=== PATIENT | male | born 1970 | race Caucasian/White ===

== ENCOUNTER 2018-12-03 20:08 | Emergency (ER) | payer MEDICAID ==
[~2018-12-03] VITALS: Ht 180.3 cm; Wt 154.6 kg
[~2018-12-03 20:08] MED LIST: CLIN150C8 PO; IBUP-1986 PO
[2018-12-03] MEDS ORDERED: ampicillin/sulbac 3gm/NS 100ml 100 ML IV STA (21:13)
[2018-12-03] MEDS ORDERED: dexamethasone sod phosphate 10mg/ml inj IV STA (21:13)
[2018-12-03] MEDS ORDERED: LIDOcaine 1% w/epiNEPHrine 1:200,000 30ml vial IM ONE (21:20)
--- NOTE | 2018-12-03 21:33 | NUR ---
DR SURESH VERBALIZED THAT HE DOES NOT WANT BLOOD CULTURES DRAWN PRIOR TO IV ANTI-BIOTICS
[2018-12-03] MEDS ORDERED: HYDR-3965 PO (21:51)
[2018-12-03] MEDS ORDERED: AMOX-580 PO (21:51)
[2018-12-03 21:58] VITALS: BP 122/53
== END 2018-12-03 23:26 | disposition home or self-care (01) ==
LOC: ER 20:09
DX: J36 Peritonsillar abscess (principal); Z79.899 Other long term (current) drug therapy
CPT/HCPCS: 42700; 99283; J1100; J3490

== ENCOUNTER 2019-07-10 02:45 | Emergency (ER) | payer MEDICAID ==
[~2019-07-10] VITALS: Ht 182.9 cm; Wt 145.4 kg
[2019-07-10] MEDS ORDERED: dexamethasone sod phosphate 10mg/ml inj IV STA (03:03)
[2019-07-10] MEDS ORDERED: ketorolac trometh inj. 60 MG/2 ML VIAL IM ONE (03:05)
[2019-07-10] MEDS ORDERED: probenecid 500mg tablet PO ONE (03:10)
[2019-07-10] MEDS ORDERED: ampicillin/sulbac 3gm/NS 100ml 100 ML IV ONE (03:30)
[2019-07-10] MEDS ORDERED: LIDOcaine 1% W/epiNEPHrine 1:100,000 20ml vial IJ ONE (03:45)
[2019-07-10] MEDS ORDERED: fentaNYL/PF 50MCG/1 ML 2ML syringe IV ONE (03:45)
[2019-07-10] MEDS ORDERED: ondansetron/PF 4mg/2ml inj IV ONE (03:50)
--- NOTE | 2019-07-10 03:59 | NUR ---
moved to room 5, in the room with PA. Placed on monitoring. Blaiseuer suction, received pain medicine and zofran and receiving abx. Lidocaine being adm. to throat now per .
[2019-07-10 04:00] VITALS: BP 146/78
--- NOTE | 2019-07-10 04:14 | NUR ---
pts tonsil drained by dr. teague. Unasyn infusing. Anticipate DC once infusion completed. Pt reporting relief of much pain once drained.
[2019-07-10] MEDS ORDERED: AMOX-422 PO (04:21)
[2019-07-10] MEDS ORDERED: IBUP-1984 PO (04:21)
== END 2019-07-10 04:42 | disposition home or self-care (01) ==
LOC: ER 02:46
DX: J36 Peritonsillar abscess (principal); Z79.2 Long term (current) use of antibiotics; Z79.899 Other long term (current) drug therapy
CPT/HCPCS: 42700; 96365; 96372; 96375; 99283; J1100; J1885; J2405; J3010; J0295

== ENCOUNTER 2024-01-27 21:21 | Emergency (ER) | payer MEDICAID, OTHER ==
[~2024-01-27] VITALS: Ht 182.9 cm; Wt 132.0 kg
[~2024-01-27 21:21] MED LIST changes: +CLIN-214 PO; -CLIN150C8 PO
[2024-01-27 21:26] VITALS: BP 144/83; PULSE 109; TEMP 99; O2SAT 94
[2024-01-27] MEDS ORDERED: ketorolac trometh inj. 60 MG/2 ML VIAL IM ONE (22:30)
[2024-01-27] MEDS ORDERED: CLIN300C54 PO (22:34)
[2024-01-27] MEDS: TETanus/Pertussis (Acell)/Diphther VAC/PF (Tdap-Adult) 0.5ml syringe IMVAC ONE (23:06)
[2024-01-27 23:08] VITALS: RESP 18
[2024-01-27] MEDS: CefTRIAXone 1000mg IM Kit (w/lidocaine diluent) IM ONE (23:08)
[2024-01-27] MEDS: ketorolac tromethamine 15mg/ml inj. IM ONE (23:08)
== END 2024-01-27 23:20 | disposition home or self-care (01) ==
LOC: ER 21:22
DX: L03.114 Cellulitis of left upper limb (principal); Z79.1 Long term (current) use of non-steroidal anti-inflammatories (NSAID); Z79.2 Long term (current) use of antibiotics
CPT/HCPCS: 90471; 90715; 96372; 99284; J0696; J1885

== ENCOUNTER 2025-02-04 19:01 | Emergency (ER) | payer BC ==
[~2025-02-04] VITALS: Ht 182.9 cm; Wt 123.5 kg
[2025-02-04 19:16] VITALS: BP 135/81; PULSE 100; RESP 20; TEMP 97.3; O2SAT 96
[2025-02-04] MEDS ORDERED: HYDR-3973 PO (21:01)
[2025-02-04] MEDS ORDERED: CLIN-233 PO (21:01)
--- NOTE | 2025-02-04 21:02 | Physician Documentation ---
History of Present Illness ~ Chief Complaint: Nose Pain Stated Complaint: NOSE INFECTION Time Seen by MD: 19:50 Primary Medical Doctor: DR. VALVERDE HPI 54-year-old male reports ER with chief complaint of left Junior redness and swelling and pain. Patient states he has been experiencing symptoms for proximally five days. Currently denies drainage or discharge. Patient does not have a history of MRSA. Currently denies fevers or chills. Currently not take any medications therapy has been in his symptoms. No other complaints at this time Medication Reconciliation Allergies: Coded Allergies: No Known Allergies (Unverified , 07/10/19) Scheduled Clindamycin HCl (Clindamycin HCl CAPSULE), 3 CAP PO TID Ibuprofen (Ibuprofen), 1 TAB PO Q8H Past Medical History Past Medical History: No Pertinent History Past Surgical History: noncontributory Drug Use: none Lives In: Home Occupation: employed Physical Exam Vital Signs: Temperature: 97.3, Source: Temporal, Heart Rate: 100, Respiratory Rate: 20, BP: 135/81, Pulse Oximetry: 96, Weight: 123.450 Oxygen Flow Rate: 0 Physical Exam General: Well developed, well nourished, no distress. HEENT: Left nares positive for erythema and swelling but negative for drainage or discharge. Positive for tenderness over the Junior but negative for tenderness over the frontal maxillary sinuses. Neck: Full range of motion, supple. Respiratory: Lungs clear, no respiratory distress. Chest: No accessory muscle use, nontender. Cardiovascular: Regular rate and rhythm. Gastrointestinal: Soft, nontender, nondistended. Bowel sounds present. Extremities: Normal range of motion, nontender, normal capillary refill, no deformity. Back: No midline tenderness, no CVA tenderness. Neurologic: Oriented x4. Distal gross motor and sensory intact all four extremities. Moves all 4 extremities spontaneously. Psychiatric: Normal mood and affect. Skin: Normal color, warm and dry. No edema, no ecchymosis Progress Results/Orders Results/Orders Orders - BECKIE MEDINA Cult Mrsa Screen (02/04/25 20:04) Vital Signs 02/04/25 19:16 Temp 97.3 Pulse 100 Resp 20 B/P (MAP) 135/81 Pulse Ox 96 O2 Flow Rate 0 Medical Decision Making Additional info obtained from: old records Findings After detailed discussion jet medical decision-making, diagnostic imaging results were discussed with patient. At this time patient had an MRSA swab given he will be given clindamycin and medication for pain to cover for MRSA. Patient advised to follow up with the primary care in the finished on medications and patient will be contacted with MRSA results. ER precautions were given. Patient is stable upon discharge. All patient questions answered to satisfaction Ear Diff. Dx: Considerations: Include: Other (MRSA, cellulitis, abscess, folliculitis) Departure Disposition: HOME / SELF CARE / HOMELESS Impression: Primary Impression: Nose cellulitis Condition: Stable Discharge Instructions: MRSA Infection, Diagnosis, Adult, MRSA Infection, Self- Care, Adult Referrals: NO PRIMARY CARE PROVIDER (PCP) Prescriptions Hydrocodone Bit/Acetaminophen (Hydrocodone-Apap 10-325 Tablet) 10mg/325mg Tablet 1 TAB PO QID PRN PRN for pain for 5 Days, #20 TAB Prov: BECKIE MEDINA 02/04/25 Clindamycin HCl (Clindamycin HCl) 300 Mg Capsule 1 CAP PO Q8H for 10 Days, #30 CAP Prov: BECKIE MEDINA 02/04/25 Education Educated: Patient Educated regarding: diagnosis, treatment Signature Scribe Signature: none used Attestation: Scribed for Beckie Medina by Beckie CASTELLANO . 02/04/25 21:02 BECKIE MEDINA February 04, 2025 21:02
== END 2025-02-04 21:16 | disposition home or self-care (01) ==
LOC: ER 19:01
DX: J34.0 Abscess, furuncle and carbuncle of nose (principal); Z79.899 Other long term (current) drug therapy
CPT/HCPCS: 87081; 99283

== ENCOUNTER 2025-05-01 21:47 | Emergency (ER) | payer BC ==
[~2025-05-01] VITALS: Ht 182.9 cm; Wt 99.7 kg
[2025-05-01 21:57] VITALS: BP 113/71; PULSE 101; TEMP 98.6; O2SAT 95
[2025-05-01 22:14] LABS: STREP A SCREEN NEGATIVE (Neg)
--- NOTE | 2025-05-01 23:24 | Physician Documentation ---
History of Present Illness ~ Chief Complaint: Sore Throat Stated Complaint: SORE THROAT Time Seen by MD: 22:07 Primary Medical Doctor: KARINA SANDS [facility] Patient is a 55-year-old male that presents to the emergency department for evaluation of a sore throat times 2 days. Patient reports that his right tonsil and throat has been sore and swelling has continued to increase. Denies any known sick contact. No significant past medical history reported. Medication Reconciliation Allergies: Coded Allergies: No Known Allergies (Unverified , 07/10/19) Scheduled Clindamycin HCL* (Clindamycin HCL*), 1 CAP PO Q8H Clindamycin HCl (Clindamycin HCl CAPSULE), 3 CAP PO TID Ibuprofen (Ibuprofen), 1 TAB PO Q8H Past Medical History Past Medical History: No Pertinent History Past Surgical History: noncontributory Drug Use: none Lives In: Home Occupation: employed Review of Systems ROS As stated above in the HPI, otherwise all systems are reviewed and negative. Physical Exam Vital Signs: Temperature: 98.6, Source: Temporal, Heart Rate: 101, Respiratory Rate: 15, BP: 113/71, Pulse Oximetry: 95, Weight: 99.700 Physical Exam VITALS: Reviewed and as above. GENERAL: Alert, no apparent distress. HEENT: Normocephalic, atraumatic, PERRL, EOMI, dry mucosa, significant erythema and edema noted to the posterior oropharynx pharynx particularly on the right side. [place] edema noted, lymphadenopathy noted to submental and submand ibular lymph nodes. RESPIRATORY: Lungs clear, normal breath sounds, no respiratory distress. CHEST: No accessory muscle use, no retractions CV: Regular rate, rhythm, no edema, no murmur, No: JVD GI: Soft, non-tender, bowels sounds present, no rebound, guarding, or rigidity BACK: No CVA tenderness, or swelling MUSCULOSKELETAL No deformities, no edema SKIN: Warm and dry, no rash NEURO: Oriented x4, No motor or sensory deficit PSYCH: Normal mood and affect, no agitation Progress Results/Orders Results/Orders Vital Signs 05/01/25 21:57 Temp 98.6 Pulse 101 Resp 15 B/P (MAP) 113/71 Pulse Ox 95 Laboratory Tests Test 05/01/25 22:00 Group A Streptococcus Rapid Negative Medical Decision Making Findings Patient found to have peritonsillar abscess with no signs of airway compromise or obstruction. Patient is able to tolerate secretions. Peritonsillar abscess was evaluated by my attending. Given that the patient is not immunocompromised, able to tolerate PO, nontoxic appearing, and no signs of trismus or airway compromise, plan to discharge the patient home with clindamycin 300 mg p.o. t.i.d. Considered and doubt RPA, ludwings, epiglottitis, EBV, or acute HIV. Patient provided with strict return precautions. Throat Diff Dx: Considerations: Include: AIDS, Epiglottitis, Esophageal candidiasis, Hand foot mouth disease, Herpangina, Herpetic stomatitis, Herpes simplex, Infection mononucleosis, Immunodeficiency, Tyrone's angina, Peritonsillar abscess, Peritonsillar cellulitis, Pharyngitis-diphtheria, Pharyngitis-strepococcal, Pharyngitis-viral, Thrush, URI, Other Departure Disposition: 01 HOME / SELF CARE / HOMELESS Impression: Primary Impression: Acute pharyngitis Additional Impressions: Swelling of tonsil Peritonsillar abscess determined by examination Discharge Instructions: Peritonsillar Abscess Additional Instructions: Patient found to have peritonsillar abscess with no signs of airway compromise or obstruction. Patient is able to tolerate secretions. Peritonsillar abscess was evaluated by my attending. Given that the patient is not immunocompromised, able to tolerate PO, nontoxic appearing, and no signs of trismus or airway compromise, plan to discharge the patient home with clindamycin 300 mg p.o. t.i.d. Considered and doubt RPA, ludwings, epiglottitis, EBV, or acute HIV. Please take medication as prescribed. Return to the emergency department if you have any worsening or recurrent symptoms or any additional concerning symptoms that we discussed here today i.e. difficulty swallowing difficulty breathing fever chills nausea vomiting or any additional concerning symptoms. Referrals: NO PRIMARY CARE PROVIDER (PCP) Prescriptions Clindamycin HCL* (Clindamycin HCL*) 300 Mg Capsule 1 CAP PO Q8H for Peritonsillar abscess for 10 Days, #30 CAP 0 Refills Prov: MINERVA ARNOLD 05/01/25 Education Educated: Patient Educated regarding: diagnosis, treatment, need for follow up Signature Scribe Signature: A Attestation: Scribed for Minerva Arnold Clinical Applications Specialist by DUANE Holden . 05/01/25 23:28 MINERVA ARNOLD May 01, 2025 23:24
[2025-05-01] MEDS ORDERED: CLIN-224 PO (23:25)
[2025-05-01 23:34] VITALS: RESP 16
[2025-05-01] MEDS: ketorolac trometh 15mg/ml vial 15 MG/ML ML IM ONE (23:34)
[2025-05-01] MEDS: dexamethasone sod phosphate 10mg/ml inj IM STA (23:35)
== END 2025-05-01 23:55 | disposition home or self-care (01) ==
LOC: ER 21:48
DX: J02.9 Acute pharyngitis, unspecified (principal); J36 Peritonsillar abscess
CPT/HCPCS: 87081; 87880; 96372; 99284; J1100; J1885